=== PATIENT | male | born 2000 | race Two or more races ===

== ENCOUNTER 2024-07-09 10:46 | Emergency (ER) | payer OTHER ==
[~2024-07-09] VITALS: Ht 177.8 cm; Wt 73.9 kg
[2024-07-09] MEDS ORDERED: IBUP-1955 PO (12:05)
[2024-07-09] MEDS ORDERED: HYDR-4303 PO (12:16)
[2024-07-09 12:32] VITALS: BP 119/77; TEMP 98.3; O2SAT 98
== END 2024-07-09 12:33 | disposition home or self-care (01) ==
LOC: ER 10:54
DX: S92.101A Unspecified fracture of right talus, initial encounter for closed fracture (principal); W11.XXXA Fall on and from ladder, initial encounter; Y93.89 Activity, other specified; Y92.89 Other specified places as the place of occurrence of the external cause; Y99.8 Other external cause status
CPT/HCPCS: 73610-TC